=== PATIENT | male | born 1995 | race Caucasian/White ===

== ENCOUNTER → 2017-01-27 | Outpatient (CLI) | payer OTHER ==
[2013-09-09 19:22] VITALS: BP 150/75
[~2017-01-27] VITALS: Ht 177.8 cm; Wt 111.1 kg
[~2017-01-27] MED LIST: HYDR-2758 PO; IBUP-1060 PO; NORMAL SALINE IV ONE; OXYC-323 PO; SINCALIDE IV ONE
--- NOTE | 2017-01-27 08:50 | RAD ---
Examination: Ultrasound abdomen right upper quadrant History: History of right upper quadrant pain. Comparison: None available. Findings: The pancreas is not well-visualized due to bowel gas. The visualized IVC appears patent. There is increased echogenicity noted throughout the liver likely hepatic steatosis. No evidence of gallstones identified. The liver measures 17.2 cm. The common bile duct measures 2.6 mm in transverse dimension. The right kidney measures 11.7 cm in length. Impression: 1. No evidence of gallstones. 2. Increase in echogenicity of the liver likely hepatic steatosis.
--- NOTE | 2017-01-27 10:07 | RAD ---
NUCLEAR MEDICINE HEPATOBILIARY SCAN WITH GALLBLADDER EJECTION FRACTION CALCULATION DATED : INDICATION: Reflux, Epigastric pain COMPARISON STUDIES: Ultrasound same day exam. TECHNIQUE/FINDINGS: Routine hepatobiliary scan was performed following the intravenous administration of technetium 99 M Choletec 5 mCi. The patient also received Kinevac 2.2 micrograms intravenously for gallbladder ejection fraction calculation. There is normal radiotracer uptake identified in the liver with normal extremely distended gallbladder, common bile duct. The calculated gallbladder ejection fraction is 66%. There is extension of the radiotracer into the small bowel. IMPRESSION: 1. Normal HIDA scan.
== END | disposition home or self-care (01) ==
LOC: US 07:13
PROVIDERS: ATTEND Internal Medicine Gastroenterology
DX: K82.8 Other specified diseases of gallbladder (principal)
CPT/HCPCS: 76705; 78226; 96374; 96375; A9537; J2805

== ENCOUNTER → 2017-02-27 | Outpatient (CLI) | payer OTHER | END | disposition home or self-care (01) | LOC: NM 07:47 | DX: K21.9 Gastro-esophageal reflux disease without esophagitis (principal); K30 Functional dyspepsia (principal) | CPT/HCPCS: 78264; A9541 ==